=== PATIENT | male | born 1970 | race African-American/Black ===

== ENCOUNTER 2022-11-28 17:38 | Emergency (ER) | payer OTHER, SELFPAY ==
--- NOTE | ~2022-11-28 | XR_ITS ---
EXAMINATION: XR HAND, LEFT CLINICAL INFORMATION: Left middle finger swelling. Rule out osteomyelitis. COMPARISON: None TECHNIQUE: PA, lateral, and oblique views of the left hand. FINDINGS: No fracture or dislocation. Diffuse soft tissue swelling about the long finger. No osseous destructive or erosive change. No periostitis. No radiodense foreign body or tracking soft tissue gas. The joint spaces throughout the hand and wrist are maintained. XR/XR hand LT min 3V IMPRESSION: 1. Diffuse soft tissue swelling about the long finger. 2. No acute osseous injury or radiographic evidence of advanced osteomyelitis.
[2022-11-28 17:40] VITALS: BP 141/78; PULSE 81; RESP 18; TEMP 36.7; O2SAT 99; BMI 30.1
--- NOTE | 2022-11-28 17:42 | ED_ITS ---
HPI - Extremity Injury (Upper) General Chief Complaint: Extremity Injury, Upper <AXEL Arriaga Last Filed: 11/28/22 17:43> Stated Complaint: finger swelling <AXEL Arriaga Last Filed: 11/28/22 17:43> Time Seen by Provider: 11/28/22 21:31 <AXEL Arriaga Last Filed: 11/28/22 17:43> Source: patient <AXEL Dangelo Last Filed: 11/28/22 22:28> Mode of arrival: ambulatory <AXEL Dangelo Last Filed: 11/28/22 22:28> Limitations: no limitations <AXEL Dangelo Last Filed: 11/28/22 22:28> History of Present Illness HPI narrative: This is a 52-year-old male presenting to the emergency department with complaints of left middle finger swelling, around male, he tells me this started few days ago and has been rapidly worsening, tells me the area is very painful. He tells me a small abscess seems to be forming. He denies fevers, chills, numbness, tingling, trauma to the area, chest pain, shortness of breath, nausea, vomiting, abdominal pain, headache, vision changes. No known history of MRSA. Patient not a diabetic. <AXEL Dangelo Last Filed: 11/28/22 22:28> Related Data Home Medications: Previous Rx's Medication Instructions Recorded cephalexin 500 mg tablet 500 mg PO Q6H 10 days #40 tabs 11/28/22 doxycycline hyclate 100 mg capsule 100 mg PO BID 10 days #20 caps 11/28/22 <AXEL Arriaga Last Filed: 11/28/22 17:43> Allergies/Adverse Reactions: Allergies Allergy/AdvReac Type Severity Reaction Status Date / Time No Known Allergies Allergy Verified 11/28/22 17:45 <AXEL Arriaga Last Filed: 11/28/22 17:43> Review of Systems Review of Systems: Constitutional : No Weight loss, No Fever, No Chills, No Fatigue, No Malaise ENT/Mouth : No sore throat, No Rhinorrhea Eyes: No Eye Pain, No Swelling, No Redness Cardiovascular : No Chest Pain, No SOB, No Dyspnea on Exertion, No Orthopnea, No Edema, No Palpitations Respiratory : No Cough, No Sputum, No Wheezing Gastrointestinal : No Nausea, No Vomiting, No Diarrhea, No Constipation, No abdominal Pain, No Hematochezia, No Melena Genitourinary : No Dysuria, No Urinary Frequency, No Hematuria, Musculoskeletal : No joint pain, No Myalgias, No Joint Swelling, + finger pain Skin : No Skin Lesions, No rash Neuro : No Weakness, No Numbness, No Dizziness, No Headache Psych : No Anxiety/Panic, No Depression All other systems reviewed and are negative <AXEL Dangelo - Last Filed: 11/28/22 22:28> Yes all other systems are reviewed and are negative <AXEL Dangelo - Last Filed: 11/28/22 22:28> [facility] Past Medical History Attestation statement: The following information was validated with the patient. <AXEL Dangelo - Last Filed: 11/28/22 22:28> Source: old records reviewed and nursing notes reviewed <AXEL Dangelo - Last Filed: 11/28/22 22:28> Social History Social History: Social History Advance Directives: No Advance Directives Information Provided: Yes <AXEL Arriaga - Last Filed: 11/28/22 17:43> Physical Exam Vital Signs: Vital Signs: Last Vital Signs Temp 98.0 F 11/28/22 17:40 Pulse 81 11/28/22 17:40 Resp 18 11/28/22 17:40 BP 141/78 H 11/28/22 17:40 Pulse Ox 99 11/28/22 17:40 O2 Del Method 11/28/22 17:40 BMI result Body Mass Index 30.1 <AXEL Arriaga - Last Filed: 11/28/22 17:43> Vital Signs: Last Vital Signs Temp 98.0 F 11/28/22 17:40 Pulse 81 11/28/22 17:40 Resp 18 11/28/22 17:40 BP 141/78 H 11/28/22 17:40 Pulse Ox 99 11/28/22 17:40 O2 Del Method 11/28/22 17:40 BMI result Body Mass Index 30.1 Vital signs stable <AXEL Dangeol - Last Filed: 11/28/22 22:28> Appearance: Alert.? Oriented X3.? No acute distress.? Head: Normocephalic, atraumatic, no step-offs or deformities Eyes: Pupils equal, round and reactive to light.? CVS: Normal heart rate and rhythm.? Pulses normal.? Respiratory: No respiratory distress.? Breath sounds normal.? Abdomen: Soft and nontender.? Skin: Skin warm and dry.? Normal skin color.? Normal skin turgor.? Extremities: No lower extremity edema.? No calf ttp. 5/5 strength to bilateral upper and lower extremities. 2+ radial pulses equal bilateral, capillary refill less than 2 seconds. Normal sensation to bilateral upper extremities. Paronychia noted to the left middle finger with small overlying abscess in rosy thema. Normal right hand. Full range of motion to all fingers, wrist. Back: No midline tenderness, no C-spine tenderness, full range of motion, no CVA tenderness bilaterally Neuro: Oriented X 3.? No motor deficit.? No sensory deficit. CN 2-12 intact <AXEL Dangelo - Last Filed: 11/28/22 22:28> Course Course Course Narrative: RME - 52 yo male presenting with left middle finger swelling and pain after biting his fingernails. Exam c/w paronychia. Normal ROM of the digit. Will need I&D and abx. No hx DM. <AXEL Arriaga - Last Filed: 11/28/22 17:43> Reevaluation(s) Reevaluation #1: X-ray with no radiographic evidence of osteomyelitis Needle aspiration was done, purulence expressed around 5 cc from left middle fi nger paronychia. Patient tolerated procedure well however reports that the area is very painful. Will be discharged home with doxycycline and Keflex. Patient drove here therefore cannot give him any narcotic for pain. Will offer him Tylenol. Educated patient on diagnosis and treatment plan, answered all question, patient verbalizes understanding. At this time patient will be discharged home, advised to return with new or worsening symptoms. Educated on worrisome signs and symptoms and when to return. At this time I feel comfortable discharge home. <AXEL Dangelo - Last Filed: 11/28/22 22:28> Time: 22:27 <AXEL Dangelo - Last Filed: 11/28/22 22:28> Medications Administered Discontinued Medications Generic Name Dose Route Start Last Admin Trade Name Freq PRN Reason Stop Dose Admin Acetaminophen 975 mg 11/28/22 21:51 11/28/22 21:59 Acetaminophen 325 Mg Tablet PO 11/28/22 21:52 975 mg ONCE ONE Administration <AXEL Arriaga - Last Filed: 11/28/22 17:43> Medications Administered Discontinued Medications Generic Name Dose Route Start Last Admin Trade Name Freq PRN Reason Stop Dose Admin Acetaminophen 975 mg 11/28/22 21:51 11/28/22 21:59 Acetaminophen 325 Mg Tablet PO 11/28/22 21:52 975 mg ONCE ONE Administration <AXEL Dangelo - Last Filed: 11/28/22 22:28> Medical Decision Making Medical Decision Making [facility] Narrative: 2135 52-year-old male presents with redness, swelling to left middle finger times a few days worsening status post biting his nails. Physical examination with paronychia the left middle finger with small abscess and overlying erythema. Likely paronychia with overlying cellulitis. Unlikely herpetic arturo, threatened limb, septic joint, osteomyelitis, gangrene. Plan at this time is incision and drainage <AXEL Dangelo - Last Filed: 11/28/22 22:28> Differential Diagnosis Differential Diagnoses: The differential diagnosis associated with the presentation includes <AXEL Dangelo - Last Filed: 11/28/22 22:28> Likely paronychia with overlying cellulitis. Unlikely herpetic arturo, threatened limb, septic joint, osteomyelitis, gangrene. <AXEL Dangelo - Last Filed: 11/28/22 22:28> Admission/Observation Consideration of admission/observation: Escalation of care including admission/observation considered <AXEL Dangelo - Last Filed: 11/28/22 22:28> Not indicated <AXEL Dangelo - Last Filed: 11/28/22 22:28> Tests considered The following testing was considered but not selected: Considered x-ray of hand however low suspicion for osteomyelitis <AXEL Dangelo - Last Filed: 11/28/22 22:28> Core Measures AMI core measures followed: Yes <AXEL Dangelo - Last Filed: 11/28/22 22:28> Measure exclusions: not indicated <AXEL Dangelo Last Filed: 11/28/22 22:28> Critical Care Time Critical Care Time Critical Care Time: No <AXEL Dangelo Last Filed: 11/28/22 22:28> Discharge Plan Discharge Clinical Impression: Paronychia of finger <AXEL Arriaga Last Filed: 11/28/22 17:43> Patient Disposition: Home, Self-Care <AXEL Arriaga Last Filed: 11/28/22 17:43> Instructions: Paronychia (ED), Cellulitis (ED) <AXEL Arriaga Last Filed: 11/28/22 17:43> Additional Instructions: Take your medications as prescribed. If you were prescribed antibiotics today, it is important that you take your medication to their entirety, do not skip any doses, do not finish them early. Follow-up with your primary care provider this week. Return to the emergency department with new or worsening symptoms. Such as fevers, chills, chest pain, shortness of breath, nausea, vomiting, dizziness, headache, vision changes, lethargy, inability to move finger, worsening redness, swelling or discharge from site You can soak your finger in warm water soaks In case of emergency call 911 XR/XR hand LT min 3V IMPRESSION: 1.? Diffuse soft tissue swelling about the long finger. 2.? No acute osseous injury or radiographic evidence of advanced osteomyelitis. ? <AXEL Arriaga Last Filed: 11/28/22 17:43> Prescriptions: New cephalexin 500 mg tablet 500 mg PO Q6H 10 Days Qty: 40 0RF doxycycline hyclate 100 mg capsule 100 mg PO BID 10 Days Qty: 20 0RF <AXEL Arriaga Last Filed: 11/28/22 17:43> Referrals: Stanislaw Lerner MD [Primary Care Provider] - 2 days <AXEL Arriaga - Last Filed: 11/28/22 17:43> Stand Alone Forms: Work/School Release <AXEL Arriaga - Last Filed: 11/28/22 17:43>
[2022-11-28] MEDS: Acetaminophen 325 MG TABLET 975 MG PO (21:59)
== END 2022-11-28 23:04 | disposition home or self-care (01) ==
PROVIDERS: Emergency Provider Emergency Medicine; PCP Internal Medicine
DX: L03.012 Cellulitis of left finger (principal)
CPT/HCPCS: 73130; 99283

== ENCOUNTER 2023-04-18 15:20 | Emergency (ER) | payer OTHER, SELFPAY ==
[2023-04-18 15:57] VITALS: BP 124/74; PULSE 86; RESP 18; TEMP 36.1; O2SAT 100; BMI 33.3
--- NOTE | 2023-04-18 15:58 | ED.EXTPRO ---
HPI - Extremity Problem General Chief complaint: Extremity Problem Stated complaint: worse pain, doctor referred Time Seen by Provider: 04/18/23 17:46 Source: patient Mode of arrival: ambulatory Limitations: no limitations History of Present Illness HPI Narrative: A 53 yo male who presents to the ER for a fungal rash between the 4th and 5th toes for the last 3 months. He states that he was evaluated recently at Urgent Care and was prescribed fluconazole and topical regimens but no improvement. He states that there is drainage and he has been having a hard time keeping the area dry despite changing gauze frequently. No other rashes. No fevers. No joint swelling or pain. No hx diabetes. MD Complaint: extremity pain Onset (ago): month(s) Pain Consistency: constant Location: right and toe Quality: burning and aching Radiation: none Relieving factors: nothing Exacerbating factors: weight bearing and palpation Associated symptoms: denies other symptoms Context: other (athletes foot) Related Data Previous Rx's Medication Instructions Recorded cephalexin 500 mg tablet 500 mg PO Q6H 10 days #40 tabs 11/28/22 doxycycline hyclate 100 mg capsule 100 mg PO BID 10 days #20 caps 11/28/22 fluconazole 150 mg tablet 150 mg PO QWEEK #3 tabs 04/18/23 (Diflucan) miconazole nitrate 2 % topical 1 appl topical BID #71 grams 04/18/23 ointment Allergies Allergy/AdvReac Type Severity Reaction Status Date / Time No Known Allergies Allergy Verified 11/28/22 17:45 Review of Systems Review of Systems: Yes all other systems are reviewed and are negative [facility] Social History Social History Advance Directives: No Advance Directives Information Provided: No Physical Exam Vital Signs: Vital Signs: Last Vital Signs Temp 96.9 F 04/18/23 15:57 Pulse 86 04/18/23 15:57 Resp 18 04/18/23 15:57 BP 124/74 04/18/23 15:57 Pulse Ox 100 04/18/23 15:57 O2 Del Method Room Air 04/18/23 15:57 BMI result Body Mass Index 33.3 Appearance: Alert. Oriented X3. No acute distress. HEENT: normal inspection CVS: Normal heart rate and rhythm. Pulses normal. Respiratory: No respiratory distress. Skin: Skin warm and dry. Normal skin color. Normal skin turgor. No rashes. Extremities: Right 4th and 5th toes, intriginous area is macerated, erythematous ucleration with a fungal odor Neuro: Oriented X 3. Grossly normal. No sensory deficit. Course Course Course Narrative: RME - 53 yo male presents to the ER for evaluation of a painful fungal rash between his 4th and 5th toes for the last several weeks, acute on chronic for the last 3 months. Seen at Urgent Care who prescribed him oral fluconazole and topical regimens with no improvement. We discussed current treatment is appropriate and no further prescriptions are needed. He would like wound care and dressings because the toes are copiously oozing. Medical Decision Making Medical Decision Making MDM Narrative: 53 yo male presents to the ER for evalution of for a fungal rash between the 4th and 5th toes for the last 3 months. He was evaluated at Urgent Care and was prescribed fluconazole and topical regimens but no improvement. On PE in between his 4th and 5th toes are macerated erythematous ulcerations with a fungal ordor. Recommendation to continus the Fluconazole treatment for the duration of 6 weeks. Recommended frequent dressing changes and to keep the area clean and dry. he has PCP appointment later this month. stable for d/c home with outpatient follow up Differential Diagnosis Differential Diagnoses: The differential diagnosis associated with the presentation includes tinea pedis, cellulitis, bacterial infection External Record Review External record reviewed: Outpatient record Prescription Management I considered prescription management with: Other (antifungal) Critical Care Time Critical Care Time Critical Care Time: No Discharge Plan Discharge Clinical Impression: Tinea pedis Patient Disposition: Home, Self-Care Instructions: Athlete's Foot (ED) Additional Instructions: continue the prescribed fluconazole pills, once per week for 6 weeks total use the prescribed antifungal two times per day follow up with your PCP follow up with the wound clinic if no improvement if you develop new or worsening symptoms call 911 or come back to the ER for further evaluation. Prescriptions: New fluconazole [Diflucan] 150 mg tablet 150 mg PO QWEEK Qty: 3 0RF miconazole nitrate 2 % ointment 1 appl topical BID Qty: 71 0RF No Action cephalexin 500 mg tablet 500 mg PO Q6H 10 Days Qty: 40 0RF doxycycline hyclate 100 mg capsule 100 mg PO BID 10 Days Qty: 20 0RF Referrals: [facility] Wound Care Management [Provider Group] (refractory tinea pedis) Stand Alone Forms: Work/School Release Interventions: ED Discharge Assessment Last Done: 04/18/23 17:55 Discharge Date/Time: 04/18/23 17:57
== END 2023-04-18 17:57 | disposition home or self-care (01) ==
PROVIDERS: Emergency Provider Emergency Medicine; PCP Internal Medicine
DX: B35.3 Tinea pedis (principal); R21 Rash and other nonspecific skin eruption
CPT/HCPCS: 99282; 99283

== ENCOUNTER 2023-04-23 13:49 | Outpatient (RCR) | payer OTHER, SELFPAY | END 2023-05-18 09:35 | disposition home or self-care (01) | LOC: HO.WCC 13:49 | PROVIDERS: PCP Internal Medicine; Visit Provider Physician Assistant | DX: S91.104D Unspecified open wound of right lesser toe(s) without damage to nail, subsequent encounter (principal); S91.301D Unspecified open wound, right foot, subsequent encounter; T69.021D Immersion foot, right foot, subsequent encounter; L30.9 Dermatitis, unspecified; Z86.16 Personal history of COVID-19 | CPT/HCPCS: 73630; 97602; 99212; 99213 ==